=== PATIENT | female | born 1980 | race Caucasian/White ===

== ENCOUNTER 2024-09-20 07:47 | Observation (INO) ==
--- NOTE | 2024-09-12 12:23 | Anesthesiology Consultation ---
Date of Service September 12, 2024 Assessment & Plan (1) Encounter for pre-operative examination: Chart Review Chart Review: Acceptable Risk for Surgery History Surgery Operation Date: 09/20/24 11:10 Proposed Procedures p Panniculectomy - Mirna Griffith MD Height/Weight Height: 5 ft 6 in Weight: 97.522 kg Allergies Allergy/AdvReac Type Severity Reaction Status Date / Time bee venom protein (honey bee) Allergy Severe breathing Verified 09/07/24 11:22 issues No Known Drug Allergies Allergy Verified 09/07/24 11:22 Medications Home Medications Medication Instructions Recorded Confirmed Last Taken albuterol sulfate 90 mcg/actuation 1 inh inhalation QID PRN SOB 04/15/24 09/07/24 Unknown aerosol inhaler bupropion HCl 300 mg 24 hr tablet, 300 mg PO QAM 04/15/24 09/07/24 08/07/24 extended release epinephrine 0.3 mg/0.3 mL 0.3 mg IM Q10M PRN Anaphylaxis 04/15/24 09/07/24 Unknown injection, auto-injector (EpiPen 2-Ronaldo) rizatriptan 10 mg tablet See Rx Instructions PO .COMPLEX 04/15/24 09/07/24 07/31/24 spironolactone 100 mg tablet 100 mg PO QAM facial hair growth 04/15/24 09/07/24 08/07/24 metformin 500 mg tablet 500 mg PO BID 04/19/24 09/07/24 08/07/24 propranolol 20 mg tablet 20 mg PO BID migraines 05/18/24 09/07/24 08/07/24 tirzepatide 7.5 mg/0.5 mL 7.5 mg (0.5 mL) subcut WK #2 mL 07/29/24 09/07/24 09/04/24 subcutaneous pen injector (Ramonunkwabenaro) oxycodone-acetaminophen 5 mg-325 1 tab PO Q4H PRN pain #18 tabs 09/05/24 09/07/24 Unknown mg tablet (Endocet) Past Medical History Medical History Abnormal facial hair reason for spironolactone History of bronchitis r/t seasonal allergies. has albuterol inhaler PRN, rarely uses. Seasonal allergies Anxiety and depression Thoracic back pain ongoing, time to time Type 2 diabetes mellitus NIDDM PCOS (polycystic ovarian syndrome) Hx of migraines takes propranolol for prevention of migraines Past Family History Family History Mother Diabetes Family/Other No problems noted. Father Diabetes Grandmother (Paternal) Lung cancer Colorectal cancer Past Surgical History Surgical History S/P hammer toe correction left foot (July 2024) History of esophagogastroduodenoscopy (EGD) S/P colonoscopy Social History Smoking Status: Never smoker Do You Dip or Chew Tobacco: No Hx Alcohol Use: Yes alcohol intake frequency: holidays/special occasions only Hx Substance Use: No substance use type: does not use Testing Laboratory Results Laboratory Tests 09/05/24 11:25 Hgb 14.8 Plt Count 277 Potassium 4.0 Creatinine 0.71
[~2024-09-20 07:47] MED LIST: ACETAMINOPHEN 1000 MG/100 ML IV IV ONE
[2024-09-20] MEDS ORDERED: MIDAZOLAM HCL 1 MG/ML 2ML VIAL ONE (08:27)
[2024-09-20] MEDS ORDERED: ROCURONIUM BROMIDE 10 MG/ML 5 ML VIAL IV ONE ×2 (08:27→12:53)
[2024-09-20] MEDS ORDERED: LIDOCAINE 2% 2 ML VIAL/AMP(20MG/ML) INFIL ONE (08:27)
[2024-09-20] MEDS ORDERED: fentaNYL citrate PF 100 MCG/2 ML VIAL ONE ×2 (08:27→12:18)
[2024-09-20] MEDS ORDERED: ONDANSETRON INJ 2 MG/ML 2 ML VIAL ONE ×2 (08:27→13:43)
[2024-09-20] MEDS ORDERED: PROPOFOL IV EMULSION 10 MG/ML 20 ML VIAL IV ONE ×6 (08:27→13:08)
--- OUTSIDE RECORDS SUMMARY | 2024-09-20 08:28 | External Medical Summary | Continuity of Care Document ---
Author Name Unknown Organization [facility] [id number] [place] [id number] Address [address] [place] [id number] Care Team Providers Care Jacquard Twine Polisher Operator Name Role Phone Caldwell Dae Primary Care Physician [phone] [id number] Date(s): 09/08/24 - 09/08/24 [facility] [address] [facility] [facility] [address] [place] [id number] Encounter Diagnosis Diabetes(Discharge Diagnosis) - 09/08/24 S/P foot surgery, left(Discharge Diagnosis) - 09/08/24 Discharge Disposition: Home or Self Care Attending Physician: JIMMY Yang Christina L Encounter Type: Clinic Allergies, Adverse Reactions, Alerts Substance Criticality Severity Reaction Reaction Severity Status Bee stings breathing issues Ac tive Assessment and Plan Extracted from: Title:Follow Up Visit Author:JIMMY Yang, Kyle Porter Date:09/08/24 1.Diabetes 2.S/P foot surgery, left patient to continue decrease activity leveland may slowly transition into supportive shoe gear with wide soft toe box,in terms of her gym workouts she should continueherupper body exercises only as she has been doing. She should refrain from lower body lunging or any exercisesthat are high impact. She may return to all activities of daily living in a supportive shoe with a wide soft toe box post op xrays reviewedtoday showing normal postop position of the left foot dressings removed and incisions cleanedwith Hibiclens dressings re appliedconsisting ofBand-Aidover incision and Band-Aid over distal toe, patient may return to normal showering and should reapply Band-Aid daily K wire removed without complication patient to wearstable shoes with wide soft toe box no calf pain noted and discussed signs of a DVT continue Tylenol/ibuprofen for pain follow upon September 29 at 1030am for postop evaluation Immunizations Given and Recorded Vaccine Date Status Refusal Reason influenza virus vaccine, inactivated 08/16/24 Give n Mental Status 09/08/24 Barriers to Learning one year None evide nt Mandatory Health Literacy Documentation Yes Health Literacy Communication Barriers N ever Primary Language Spanish Problem List Condition Confirmation Course Effective Dates Status Health St atus Informant Asthma flare Confirmed Active Diabetes Confirmed Active Left foot pain Confirmed Active Enlarged thyroid Confirmed Active Hammertoe of left foot Confirmed Active S/P foot surgery, left Confirmed Active Macromastia Confirmed Active Lumbar pain Confirmed Active Migraine Confirmed Active Multiple thyroid nodules Confirmed Active Neck pain Confirmed Active Diabetic neuropathy Confirmed Active Shoulder pain Confirmed Active Thoracic back pain Confirmed Active Type 2 diabetes, HbA1c goal < 7% Confirmed Active Diagnosis Diagnosis Type Effective Dates Health Status Cl inical Service Informant Diabetes Discharge Diagnosis 09/08/24 Non-Specified S/P foot surgery, left Discharge Diagnosis 09/08/24 Non-Specified Procedures Procedure Date Related Diagnosis Body Site Status EGD - esophagogastroduodenos copy 1, 2, 3 09/15/23 Completed EGD - esophagogastroduodenoscopy 4, 5 08/26/23 Completed Colonoscopy 6 02/02/23 Completed 1- Z-line regular, 35 cm from the incisors. - 2 cm hiatal hernia. - Normal esophagus. - Normal antrum. Biopsied. - A medium amount of food (residue) in the stomach. - Normal second portion of the duodenum. Biopsied. - The examination was otherwise normal. 2A) Duodenum, biopsy: Duodenitis with epithelial lymphocytosis. COMMENT: Part A contains segments of small bowel mucosa with increased numbers of plasma cells within the lamina propria associated with an epithelial lymphocytosis but only slight loss of normal villous architecture. There is no evidence of Giardia.The differential diagnosis for the changes in part A would include so-called partially treated-latent sprue as well as changes seen in association with Helicobacter pylori gastritis. B) Gastric antrum, biopsy: Chronic gastritis associated with rare structures compatible with Helicobacter pylori. COMMENT: Part B contains two segments of gastric antral mucosa with a moderate chronic gastritis highly suggestive of Helicobacter pylori infection. A Warthin-Starry stain highlights only very rare structures deep within the glands compatible with Helicobacter pylori organisms. These findings suggest Helicobacter pylori gastritis which has either received prior medical management or may have migrated to a more proximal location within the stomach which is frequently seen in patients taking proton pump inhibitors. 3You should have received a call regarding treatment of the Helicobacter by the time you receive this letter. If you have not then let us know. 4- Repeat EGD with clear liquid diet day before and/or holding Mounjaro. 5- Z-line irregular, 36 cm from the incisors. - A large amount of food (residue) in the stomach. - Normal examined duodenum. Exam stopped without doing any biopsies or getting to the second duodenum secondary to food present - No specimens collected. 6COLO to cecum normal, repeat 5 years. Social History Social History Type Response Smoking Status Never smoked cigaret siomara Sex Sex Representation Female (finding) Ortho Outpt Note * JIMMY Yang, Roberta Porter: PERFORM Event Display: Ortho Outpt Note Authored Date: [id number] Chief Complaint left foot post-op, pin removal Primary Care Provider MD Javi, Dae Bella Patient is a very pleasant 44-year-old femalepresenting today for postop evaluation status post left footsecond digit hammertoe corrective surgery with fixation. Postop visit #3 Postop day#29 Date of surgery August 10, 2024 Patient is doing well following surgeryshe has no pain of her calf and no signs consistent with aDVTshe has been compliant with recommended offloading restrictions use of a postop shoeshe is ready to have her K wire removed. Review of Systems Type 2 diabetes Objective Physical Exam Problem focused left foot: Dorsalis pedis pulse palpable 2 out of 4, posterior tibial pulse palpable2 out of 4,capillary refill timeless than 3 seconds, skin turgor is good to all digits of the left footpedal hair is present. Gross sensation intact all digits of the left foot. Skin is clean and dry Second digit left foot, status post hammertoe corrective surgery, incision well- healed skin coaptedvery little postop swelling no erythema no drainage,toe in anatomical position,no pain with dorsiflexion or plantarflexion of toe at second MPJ. K wire removed without complications no drainageor cellulitis from K wire. Calf is supple without pain or swellingno signs consistent with a DVT patient is taking aspirin 81 mg X-ray dictation 3 views left foot:3 views of the left foot show stable and intact K wire fixationfollowing left footsecond digit proximal interphalangeal jointarthrodesis with percutaneous K wire fixation. Stable postop position of the left foot. I personally performed the interpretation of 3 views of the left foot. Assessment/Plan 1.Diabetes 2.S/P foot surgery, left patient to continue decrease activity leveland may slowly transition into supportive shoe gear with wide soft toe box,in terms of her gym workouts she should continueherupper body exercises only as she has been doing. She should refrain from lower body lunging or any exercisesthat are high impact. She may return to all activities of daily living in a supportive shoe with a wide softtoe box post op xrays reviewedtoday showing normal postop position of the left foot dressings removed and incisions cleanedwith Hibiclens dressings re appliedconsisting ofBand-Aidover incision and Band-Aid over distal toe, patient may return to normal showering and should reapply Band-Aid daily K wire removed without complication patient to wearstable shoes with wide soft toe box no calf pain noted and discussed signs of a DVT continue Tylenol/ibuprofen for pain follow upon September 29 at 1030am for postop evaluation Electronic Signature on File Electronically Reviewed/Signed by: Roberta Yang DPM Author Signature Dt/Tm:09/08/2024 01:28 PM Division of Sports Medicine CLR Patient Care team information Care Team Personnel Name: MD Caldwell Jesse Position: Physician Member Role: Primary Care Provider Address: [address] [place] [address] Telecom: [phone] Care Team Related Persons Name: CADEN MCKAY Insurance Providers Guarantor name: JENNIFER Health Plan Information #: 1 Payer: [facility] [employer] Member Number: [id number] Policy Number: NA Group Number: [id number] Health Plan Information #: 2 Payer: [facility] Member Number: [id number] Policy Number: NA Group Number: [id number] Health Plan Information #: 3 Payer: [employer] Member Number: NA Policy Number: NA Group Number: NA
[2024-09-20] MEDS: LR 15ML/HR IV SCH (10:14)
[2024-09-20 10:36] LABS: Pregnancy Test, Serum Negative (Negative)
[2024-09-20] MEDS ORDERED: ATROPINE SULFATE 0.1 MG/ML 10ML SYR IV PRN (10:48)
[2024-09-20] MEDS ORDERED: ePHEDrine sulfate 50 MG/ML AMP IV PRN (10:48)
[2024-09-20] MEDS ORDERED: fentaNYL citrate PF 100 MCG/2 ML VIAL IV PRN (10:48)
[2024-09-20] MEDS ORDERED: ONDANSETRON INJ 2 MG/ML 2 ML VIAL IV PRN (10:48)
[2024-09-20] MEDS ORDERED: HYDROmorphone INJ 1 MG/ML SYRINGE IV PRN (10:48)
--- NOTE | 2024-09-20 11:12 | History & Physical Bridge Note ---
Date of Service September 20, 2024 History & Physical Bridge Note I have examined the patient, reviewed the History & Physical and in the interval since the performance of the History & Physical I have noted the following changes of clinical significance: no changes noted
[2024-09-20] MEDS ORDERED: SCOPOLAMINE 1 MG/72 HR TDSY PATCH TD ONE (11:39)
[2024-09-20] MEDS: ceFAZolin 2000MG 2,000 MG/15 ML SYR IV SCH ×2 (11:46→17:30)
[2024-09-20] MEDS: TRANEXAMIC ACID 1,000 MG **IV Pre-op IV SCH (11:46)
[2024-09-20] MEDS: TRANEXAMIC ACID 1,000 MG **IV Intra-op IV SCH (13:59)
[2024-09-20] MEDS ORDERED: SUGAMMADEX SODIUM 200 MG/2 ML VIAL IV ONE (14:06)
[2024-09-20] MEDS: BUPIVACAINE 0.25% PF 30 ML VIAL ONE (14:13)
[2024-09-20] MEDS: TISSEEL FIBRIN SEALANT 10ML TOP ONE (14:14)
[2024-09-20] MEDS: LIDOCAINE 1%/EPINEPHRINE 1:100,000 50 ML VIAL ONE (14:14)
--- NOTE | 2024-09-20 14:47 | Post Operative Brief Note ---
PG Immediate Post Op with CF Date of Surgery September 20, 2024 Pre & Post Diagnosis Operation Date: 09/20/24 11:10 Pre-Op Diagnosis: Abdominal Pannus, Intertrigo Post-Op Diagnosis: Abdominal Pannus, Intertrigo I identified the patient and participated in the time-out.: Yes Procedure Operation Date: 09/20/24 11:10 Actual Procedures p Panniculectomy(Not Applicable) - Mirna Griffith MD Surgeon Mirna Griffith MD Automobile Wrecker Joanne Lazar PA-C Estimated Blood Loss 50 Findings Consistent with Post-Op Diagnosis Specimens Specimen Description: A: Abdominal Pannus Drains Decker Catheter and Chavo-Byrd Drain
--- NOTE | 2024-09-20 15:04 | Operative Report ---
PG Post Operative Report Pre & Post Diagnosis Operation Date: 09/20/24 11:10 Pre-Op Diagnosis: Abdominal Pannus, Intertrigo Post-Op Diagnosis: Abdominal Pannus, Intertrigo I identified the patient and participated in the time-out.: Yes Procedure Operation Date: 09/20/24 11:10 Actual Procedures p Panniculectomy(Not Applicable) - Mirna Griffith MD Surgeon Mirna Griffith MD Health Care Coordinator Joanne Lazar PA-C Estimated Blood Loss 50 Findings Consistent with Post-Op Diagnosis Specimens abdominal pannus Drains JPx2 Anesthesia Type General Complications none Indications s/p massive weight loss, overhanging abdominal pannus with intertrigo Description of Procedure Risks, benefits, and alternatives of the procedure were explained to the patient who agreed and signed consent. She was identified and marked in the preoperative holding area. She was brought to the operating room where she was positioned supine and placed under general anesthesia without incident. Decker catheter was placed. Surgical site was prepped and draped sterilely. A time-out procedure was performed. I reassessed my markings which included a lower horizontal abdominal incision with the midportion 7 cm above the vulvar commissure. Incision was marked bilaterally to the ASIS. I began by injecting 1% lidocaine with epinephrine along the planned incision. The lower abdominal incision was made using a 15-blade scalpel to incise epidermis and superficial dermis followed by electrocautery to incise deep dermis, subcutaneous fat, Дмитрий's fascia down to the abdominal wall. Care was taken to bevel superiorly in order to avoid encountering the inguinal region. Electrocautery was used to elevate the anterior abdominal skin flap ligating the perforating vessels with 3-0 Vicryl ties and electrocautery. Dissection was carried up to the level of the umbilicus in the midline. At this point, a 15-blade scalpel was used to circumscribe the umbilicus. A vertical midline incision was then made from the incision to the umbilicus and divided in the midline using electrocautery. The umbilicus was then dissected out using electrocautery down to abdominal wall. The umbilical stalk appeared viable throughout the procedure. In order to facilitate inset of the umbilicus, dissection was continued for about an additional 8 cm superior to the umbilicus. At this point, the bed was flexed and the mid portion of the superior skin flap was inset above the mons pubis using 2-0 Vicryl suture. Skin flaps were marked for excision. A 15-blade scalpel was used to make these incisions and the incision was deepened through dermis, subcutaneous fat, Дмитрий's fat using electrocautery. Subscarpal fat was resected directly. Prior to closure, a total of 10 mL of 0.25% Marcaine plain were injected into the fascia as well as along the incisions. A 15 [place]i Boy drains were placed in the wound bed and brought out through a separate stab incision in the mons pubis. The drains were sutured into place using 3-0 nylon. The umbilicus was brought out through an inverted triangular incision in the abdominal wall. Tisseel was sprayed under the skin flap to assist with hemostasis. Wound closure was then begun lateral to medial using 2-0 Vicryl Дмитрий's fascia sutures, 2-0 Vicryl deep dermal sutures, 2-0 PDO running superficial Quill suture, 3-0 Monocryl running subcuticular suture. Umbilicus was brought out through the inverted triangle incision and was sutured into place using 4-0 Vicryl Rapide half buried horizontal mattress sutures. The umbilicus was dressed using Xeroform and the incision was dressed using a Provena wound vac dressing and an abdominal binder. The procedure was tolerated well. The patient was awakened and transferred to recovery in satisfactory condition. Joanne Lazar PA-C was present and scrubbed throughout the entire procedure and was instrumental in providing retraction of the pannus and assisting in simultaneous wound closure. I attest to the content of the Intraoperative Record and any orders documented therein. Any exceptions are noted below.
[2024-09-20] MEDS: PROMETHAZINE HCL 6.25 MG in SODIUM CHLORIDE 0.9% 50 ML IV PRN (15:25)
[2024-09-20] MEDS ORDERED: PROMETHAZINE 12.5 MG/50.5 ML BAG IV PRN (16:26)
[2024-09-20] MEDS ORDERED: diphenhydrAMINE Capsule 25 MG CAP PO PRN (16:26)
[2024-09-20] MEDS ORDERED: diphenhydrAMINE 50 MG/ML VIAL IV PRN (16:26)
[2024-09-20] MEDS ORDERED: MoRPHine SULFATE 2 MG/ML CARP IV PRN (16:26)
[2024-09-20] MEDS ORDERED: ACETAMINOPHEN 325 MG TAB PO PRN (16:26)
[2024-09-20] MEDS ORDERED: LORazepam 0.5 MG TAB PO PRN (16:26)
--- NOTE | 2024-09-20 16:32 | Anesthesiology Progress Note ---
Date of Service September 20, 2024 Anesthesia Post Procedure Vital Signs Vital Signs: Temp Pulse Resp BP Pulse Ox O2 Del Method O2 Flow Rate 09/20/24 16:00 36.4 C L 64 16 122/76 99 Room Air 09/20/24 15:50 62 14 114/75 99 Room Air 09/20/24 15:40 58 L 16 113/75 98 Room Air 09/20/24 15:30 62 14 121/79 99 Room Air 09/20/24 15:20 67 12 116/78 100 Oxymask 3 09/20/24 15:10 66 12 122/83 100 Oxymask 4 09/20/24 15:00 77 18 114/82 100 Oxymask 4 09/20/24 14:53 80 16 118/88 100 Oxymask 6 09/20/24 10:02 36.7 C 75 18 136/83 98 Room Air Pain Intensity Abdomen: Pain Intensity: 2 Transfer of Care Handoff Completed per policy Notes Mental Status: alert / awake / arousable Patient Amnestic to Procedure: Yes Nausea / Vomiting: adequately controlled Pain: adequately controlled Airway Patency, RR, SpO2: stable & adequate BP & HR: stable & adequate Hydration State: stable & adequate Anesthetic Complications: no major complications apparent and Pt Satisfied with anesthetic care
[2024-09-20] MEDS: PROMETHAZINE HCL INJ 25 MG/ML 1 ML VIAL ONE (16:37)
[2024-09-20] MEDS: SODIUM CHLORIDE 0.9% 50 ML BAG ONE (16:38)
[2024-09-20] MEDS: MoRPHine SULFATE 2 MG/ML CARP IV PRN (16:48)
[2024-09-20 16:56] VITALS: RESP 18
[2024-09-21] MEDS: oxyCODONE/ACETAMINOPHEN 5mg/325mg TAB PO PRN ×2 (02:19→06:21)
[2024-09-21 03:16] VITALS: TEMP 98.1
[2024-09-21 07:06] VITALS: BP 114/77; PULSE 62; O2SAT 93
[2024-09-21] MEDS: ONDANSETRON INJ 2 MG/ML 2 ML VIAL IV PRN (07:09)
--- NOTE | 2024-09-21 07:28 | Surgery Progress Note ---
Date of Service September 21, 2024 Assessment & Plan (1) S/P panniculectomy: Plan: Deborah is doing well. She will go home today once webb is removed and she has voided. She has office follow-up tomorrow. Admission and Anticipated Discharge Date Admission Date: September 20, 2024 Subjective Deborah is resting in bed. She is tolerating regular diet. Webb is still in place. She did ambulate oernight. Physical Exam Physical Exam: wound vac to suction. drains with serosang output Results & Data Vital Signs (Past 12 Hours) Vital Signs Temp Pulse Resp BP Pulse Ox O2 Del Method 09/21/24 07:05 36.7 C 62 18 114/77 93 Room Air 09/21/24 03:00 36.7 C 72 18 103/69 98 Room Air 09/20/24 23:00 36.8 C 67 18 111/74 97 Room Air PG Care Time/CCT Total # of Minutes Spent Total Time Spent with Patient: Total time spent is greater than 50% in coordination of care (as documented) at patient's floor/unit and/or counseling patient: Coding Level of Care Code 51507 Post Operative Follow-Up Diagnoses S/P panniculectomy Z98.890
[2024-09-21] MEDS: MULTIVITAMIN TAB PO SCH (08:12)
[2024-09-21] MEDS: buPROPion XL 300 MG TABCR PO SCH (08:12)
--- NOTE | 2024-09-22 15:13 | Discharge Summary ---
Date of Service September 22, 2024 Admission HPI Per Admitting Provider History of weight loss and abdominal pannus with skin irritation adn breakdown. Admission Exam Per Admitting Provider large adbominal pannus Principal Diagnosis abdominal pannus Discharge Exam wound vac to suction. drains with serosang output Discharge Data Allergies Allergy/AdvReac Type Severity Reaction Status Date / Time bee venom protein (honey bee) Allergy Severe breathing Verified 09/20/24 09:59 issues No Known Drug Allergies Allergy Verified 09/20/24 09:59 Procedures Performed Operation Date: 09/20/24 11:10 Actual Procedures p Panniculectomy(Not Applicable) - Mirna Griffith MD Hospital Course (1) S/P panniculectomy: Patient presented to [facility] with history of abdominal pannus. She was taken to the OR and underwent panniculectomy. There were no intraoperative complications. She was taken to recovery and transferred to med/surg for observation. On POD#1, she was feeling well. She was tolerating a regular diet and ambulating. She was able to void after catheter was removed. On exam, her vitals were stable. Her incisions were CDI, wound vac to suction. Her drains had appropriate output. She was discharged home with instructions to follow-up in the office in one day. Total Time Total Time Spent Total Time Spent (In Minutes): 15 Discharge Plan Discharge Items Patient Disposition: Home - Self-Care Reason For Visit: Abdominal Pannus, Intertrigo Discharge Diagnosis: s/p panniculectomy Activity: As commented below Non-emergency contact: Surgeon Call non-emergency contact if: you have any medication questions, your pain is not controlled, you have a fever, your wound has increased redness and your wound has increased drainage Follow-up/Referrals: Joanne Lazar PA-C [Physician Acidizer] - Dae Caldwell MD [Primary Care Provider] - Diet: Regular Addtl Attending Provider Instructions: ACTIVITY RECOMMENDATIONS: __Normal activities _x_No bending, lifting or straining. Do not lay or stand flat until it is easily comfortable. __No driving __Driving allowed when you are off pain medications _x_Walking permitted __You should have help at home for ___ days __You may return to previous diet. DRESSINGS: __No dressings required _x_Keep dressings dry/in place until first office visit __Remove dressings ___ and leave dressings off __Apply ice ___ days __Remove dressings and reapply garment __Apply antibiotic ointment (Bacitracin, Neosporin, etc) to wounds 3-4 times/day for 10 days BATHING: _x_Keep dressings dry _x_Sponge bathing permitted- wound vac cannot get wet __Showering permitted _x_No swimming, hot tubs or soaking in a tub MEDICATIONS: Resume previous medications unless instructed otherwise by your surgeon. _x_Do not use aspirin, Motrin, Advil or Ibuprofen as these may promote bleeding. Please use Tylenol. _x_Prescription(s) provided: pain medication was provided at your last office visit OTHER INSTRUCTIONS: _x_Record drain output 2-3 times per day SPECIAL CARE INSTRUCTIONS: * It is normal to have a mild fever after surgery. If your temperature is higher than 101.5 degrees F, please call the office at [phone]. * Constipation is a typical side effect of pain medication. An [id number] stool softener will help relieve this. * Leaking around surgical drains may occur and should not cause concern. Sometimes these drains become clogged. If this happens, remove the bulb and milk the clot out of the tube, then replace the bulb. * Drainage from wounds after liposuction is normal and should be expected. Garments will become soiled. You should protect furniture and bedding. This drainage should mostly subside within 2-3 days. Leave garments in place unless instructed to remove them. * If you have unusual drainage from a wound or are concerned you have an infection or have any questions or concerns, please call the office at [phone]. FOLLOW UP VISIT: If not already scheduled, please call the office, , when you return home after surgery to schedule an appointment to be seen in _1__ days. Pending Studies at Discharge: Yes Stand-Alone Forms: My [facility] AFAR, Smoking Cessation Medications and DC Order Prescriptions: Continued spironolactone 100 mg tablet 100 mg PO QAM rizatriptan [Maxalt] 10 mg tablet See Rx Instructions PO .COMPLEX Rx Instructions: take 1 tab at onset of headache; if no relief may repeat 1 tab after at least 2 hrs; max = 3 tabs/24 hr PO epinephrine [EpiPen 2-Ronaldo] 0.3 mg/0.3 mL auto-injector 0.3 mg IM Q10M PRN (Reason: Anaphylaxis) Rx Instructions: for 2 doses bupropion HCl [Wellbutrin XL] 300 mg tablet extended release 24 hr 300 mg PO QAM albuterol sulfate 90 mcg/actuation HFA aerosol inhaler 1 inh inhalation QID PRN (Reason: SOB) metformin 500 mg tablet 500 mg PO BID propranolol 20 mg tablet 20 mg PO BID oxycodone-acetaminophen [Endocet] 5-325 mg tablet 1 tab PO Q4H PRN (Reason: pain) Qty: 18 0RF Rx Instructions: initial therapy Dr. Griffith [id number] Mounjaro 7.5 mg/0.5 mL pen injector 7.5 mg subcut WK Qty: 2 2RF Hold Instructions: SURGERY HOLD ONE WEEK PRIOR Discharge Orders: Discharge Order (Routine); Ordered 09/21/24 Ordered By: Joanne Callaway/Other Patient Handouts: Abdominal Pain Admission Data Admit Date/Time: 09/20/24 15:04 Attending Provider: Mirna Griffith Admit Provider: Mirna Griffith Primary Care Provider: Dae Caldwell Other Interventions: Discharge Summary Assessment (RN) Last Done: 09/21/24 09:39 Coding Level of Care Code 89054 OBS Care - Discharge Diagnoses S/P panniculectomy Z98.890
== END 2024-09-21 11:14 | disposition home or self-care (01) ==
LOC: 3W 07:47 → ASU 07:47